=== PATIENT | male | born 1975 | race Hispanic/Latino ===

== ENCOUNTER 2017-03-10 09:25 | Emergency (ER) | payer OTHER ==
[~2017-03-10] VITALS: Ht 162.6 cm; Wt 84.4 kg
[~2017-03-10 09:25] MED LIST: FIORICET WI1 CAPSULE PO; HYDROCODON-ACE1 EAC7 PO; MOTRIN600 MG PO; OXCARBAZEPINE300 MG PO; PEN-VEE K,VEET500 MG PO; TORADOL10 MG PO; TRAZODONE HCL50 MG PO
[2017-03-10 10:17] LABS: EOSINOPHIL (%) 2.4 % (0-5); EOSINOPHIL COUNT 0.2 K/uL (0-0.3); HEMATOCRIT 38.1 % (38.0-50.0); IMMATURE GRANULOCYTE (%) 0.2 % (0.0-0.7); INSTRUMENT ABS NEUTROPHIL CT 4.3 K/uL; LYMPHOCYTE COUNT 1.6 K/uL (1.0-2.8); MCHC 34.1 G/DL (30.0-36.0); MEAN PLAT.VOLUME 11.6 uM^3 (9.0-12.4); MONOCYTE (%) 3.3 % (3-12); MONOCYTE COUNT 0.2 K/uL (0-0.8); NEUTROPHIL (%) 68.5 % (45-76); NEUTROPHIL COUNT 4.3 K/uL (1.8-6.4); PLATELET COUNT 192 K/uL (156-360); RBC DIS.WIDTH-SD 34.5 % (39-53); RED BLOOD COUNT 4.82 M/uL (4.00-5.50); WHITE BLOOD COUNT 6.3 K/uL (4.1-10.2)
[2017-03-10] MEDS ORDERED: AMLODIPINE BESYL5 MG PO (10:23)
[2017-03-10 10:29] LABS: CHLORIDE 107 mEq/L (99-109); POTASSIUM 4.1 mEq/L (3.7-5.4); SODIUM 141 mEq/L (136-147)
[2017-03-10 10:30] LABS: GLUCOSE 253 mg/dL (70-99)
[2017-03-10 10:32] LABS: ANION GAP 10 MEQ/L (2-14)
[2017-03-10 10:34] LABS: GFR ESTIMATE (CALCULATED) > 59 mL/min/
[2017-03-10 10:35] LABS: UREA NITROGEN (BUN) 15 mg/dL (9-23)
[2017-03-10 10:53] LABS: TROP-I INTERPRETATION NEGATIVE; TROPONIN-I < 0.01 ng/mL (0.0-0.30)
[2017-03-10 12:44] LABS: TROP-I INTERPRETATION NEGATIVE; TROPONIN-I < 0.01 ng/mL (0.0-0.30)
[2017-03-10 13:25] VITALS: BP 1161/72
== END 2017-03-10 13:59 | disposition home or self-care (01) ==
LOC: EME 09:25
PROVIDERS: Emergency Medicine
DX: R07.89 Other chest pain (principal); I10 Essential (primary) hypertension; J45.909 Unspecified asthma, uncomplicated; F17.200 Nicotine dependence, unspecified, uncomplicated
CPT/HCPCS: 71010; 80048; 84484; 85025; 93005; 99281; 99285